=== PATIENT | female | born 2000 | race Caucasian/White ===

== ENCOUNTER 2024-01-24 22:04 | Emergency (ER) | payer OTHER, SELFPAY ==
[2024-01-24 22:06] VITALS: BP 126/82; BMI 25.8
--- NOTE | 2024-01-24 22:51 | ED.GENMED ---
History of Present Illness
General
Chief Complaint: Extremity Pain (non-traumatic)
Time Seen by Provider: 01/24/24 22:49
Travel History
Have you had any contact with someone who has COVID-19?: No
Do you have any symptoms of coronavirus? Fever > 100 degrees, chills, cough, shortness of breath, sore throat, loss of taste or smell, muscle aches, or headache?: No
History of Present Illness
History of Present Illness:
23-year-old female presents the emergency department for evaluation of nasal pain. She states she has had butted by her dog. No nose bleeding was noted. Denies any vision changes or loss of consciousness
Past History
Past History
ED Past Medical History: Psychiatric
ED Past Surgical History: None
Review of Systems
Review of Systems
Allergies reviewed?: Yes
All Other Systems: ROS reviewed and negative except as documented in HPI and ROS
Phy Exam
Physical Exam
Physical Exam:
GEN: Well appearing, NAD, WDWN
HEENT: Oral mucosa moist, no scleral icterus. Mild swelling bilaterally to the nasal bridge. Good nasal alignment, no crepitus or deformities. No nasal septal hematomas bilaterally
Cardiac: Regular rate
Lung: No respiratory distress, no tachypnea
MSK: No gross deformity or injuries
Skin: Good color, no pallor or jaundice, no rashes
Neuro: AO x3, moves all extremities freely
Psych: Calm, cooperative
Course
Vital Signs
Initial and Last Documented VS:
Initial Vital Signs
Temp Pulse Resp BP Pulse Ox
98.5 F 82 16 126/82 99
01/24/24 22:06 01/24/24 22:06 01/24/24 22:06 01/24/24 22:06 01/24/24 22:06
Last Documented Vital Signs
Temp Pulse Resp BP Pulse Ox
98.5 F 82 16 126/82 99
01/24/24 22:06 01/24/24 22:06 01/24/24 22:06 01/24/24 22:06 01/24/24 22:06
MDM/Problems Addressed
MDM/Problems Addressed:
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
*Critical Care Note
Total Time (30-74mins, 75-104mins- exclusive of procedures): Not Applicable
ED Attending Note
-
Portions of this chart may have been created with voice recognition software.� Occasional wrong word or��sound alike� substitutions may have occurred due to the inherent limitations of voice recognition software.
Discharge Plan
Departure
Patient Disposition: Home (Routine Discharge)
Date of Disposition: 01/24/24
Time of Disposition: 22:56
Patient with high blood pressure during this ER visit?: No
Discharge Problem:
Contusion of nose, initial encounter
Instructions: Nose Fracture (DC)
Prescriptions:
No Action
lamotrigine [Lamictal] 25 MG tablet
25 mg PO BID
topiramate [Topamax] 100 MG tablet
100 mg PO BID
drospirenone-ethinyl estradiol [Nichelle (28)] 1 TAB tablet
1 tab PO Daily
Activity Restrictions/Additional Instructions:
I do not think it is likely that you sustained a fracture given the alignment of your nose. Regardless if there is a small fracture this will heal on its own without any intervention. Please ice the nose at least 3 times daily to reduce swelling
and take Tylenol and/or ibuprofen as needed for pain
Interventions
Interventions:
*Risk Screen - Suicide Last Done: 01/24/24 22:06
*General Assessment Last Done: 01/24/24 23:04
*Neglect/Abuse Screening Last Done: 01/24/24 22:06
*ED COVID-19 Vaccine History Last Done: 01/24/24 22:06
*Nursing Disposition Last Done: 01/24/24 23:04
ED-Skin Assessment Last Done: 01/24/24 23:02
Discharge Date and Time
Discharge Date/Time: 01/24/24 23:04
== END 2024-01-24 23:04 | disposition home or self-care (01) ==
LOC: EMR 22:04
PROVIDERS: EMERGENCY PHYSICIAN Emergency Medicine
DX: S00.33XA Contusion of nose, initial encounter (principal); W54.1XXA Struck by dog, initial encounter
CPT/HCPCS: 99282